=== PATIENT | male | born 1995 | race African-American/Black ===

== ENCOUNTER 2020-11-04 12:42 | Emergency (ER) | payer OTHER ==
[2020-11-04] MEDS ORDERED: IBUPROFEN 600 MG TABLET PO ONE (13:29)
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
[2020-11-04 16:02] VITALS: BP 131/74
== END 2020-11-04 15:53 | disposition home or self-care (01) ==
LOC: ER 12:42
DX: M54.5 Low back pain (principal); V49.9XXA Car occupant (driver) (passenger) injured in unspecified traffic accident, initial encounter; F17.200 Nicotine dependence, unspecified, uncomplicated; F12.10 Cannabis abuse, uncomplicated
CPT/HCPCS: 72110; 99283